=== PATIENT | male | born 1965 | race Native Hawaiian/Other Pacific Islander ===

== ENCOUNTER 2017-08-24 20:28 | Emergency (ER) | payer OTHER ==
[~2017-08-24] VITALS: Ht 175.3 cm; Wt 112.5 kg
[2017-08-24] MEDS ORDERED: PRAZOSIN HCL2 MG OR (20:43)
[2017-08-24] MEDS ORDERED: AMITRIPTYLIN50 MG PO (20:44)
[2017-08-24] MEDS ORDERED: DIPH50CA30 PO (20:45)
[2017-08-24] MEDS ORDERED: SEROQUEL400 MG OR (20:45)
[2017-08-24] MEDS ORDERED: DIVA500T2 OR (20:45)
[2017-08-24 22:02] VITALS: BP 148/99; TEMP 98.4
[2017-09-14] MEDS ORDERED: METO50TA27 PO (00:15)
[2017-09-14] MEDS ORDERED: LIPITOR40 MG PO (00:15)
== END 2017-08-24 22:03 ==
LOC: ED 20:28
PROC: 0HQGXZZ Repair Left Hand Skin, External Approach (ICD-10-PCS; principal; 2017-08-24)
DX: S61.412A Laceration without foreign body of left hand, initial encounter (principal); W19.XXXA Unspecified fall, initial encounter; Y92.149 Unspecified place in prison as the place of occurrence of the external cause
CPT/HCPCS: 96372; 99283; J1885